=== PATIENT | female | born 1950 ===

== ENCOUNTER → 2020-08-29 | Outpatient (CLI) | payer OTHER | END | disposition home or self-care (01) | LOC: RAD 08:19 | PROVIDERS: ATTEND Internal Medicine Sports Medicine | DX: K30 Functional dyspepsia (principal); K21.9 Gastro-esophageal reflux disease without esophagitis; K29.30 Chronic superficial gastritis without bleeding; D13.1 Benign neoplasm of stomach; K31.84 Gastroparesis; R10.31 Right lower quadrant pain; R10.30 Lower abdominal pain, unspecified; R10.9 Unspecified abdominal pain ==